=== PATIENT | male | born 1945 | race Caucasian/White ===

== ENCOUNTER → 2016-04-05 | Day surgery (SDC) | payer MEDICARE ==
--- NOTE | 2016-03-26 08:52 | HP ---
PREOPERATIVE HISTORY AND PHYSICAL: DATE OF SURGERY/ADMISSION: 03/29/16 AGE: 71. PROCEDURE: Left long finger trigger release, left ulnar decompression of the wrist, left wrist carpal tunnel release. CHIEF COMPLAINT: Numbness and tingling in the left hand, left long finger triggering. HISTORY OF PRESENT ILLNESS: This is a 71-year-old male who has developed numbness and tingling in his left hand following an elbow dislocation in October 2015. It bothers him most when he flexes his wrist and it bothers him at night. When he wakes up in the morning, his fingers are very stiff. 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 He has tried wearing a brace at night that has not been helpful in alleviating his symptoms. He recently had a nerve conduction study, which showed median and ulnar nerve compression at the left wrist. He has also had locking of his left middle finger for quite sometime now and is interested in pursuing a more permanent resolution to both of these problems in the form of surgical intervention. PAST MEDICAL HISTORY: Status post left elbow dislocation, October 2015. PAST SURGICAL HISTORY: Lipoma removed from right flank. MEDICATIONS: Omeprazole p.r.n. ALLERGIES: No known drug allergies. FAMILY MEDICAL HISTORY: Significant for diabetes. SOCIAL HISTORY: The patient is retired. He reports quitting smoking approximately 7 years ago. Prior to that, he smoked from age 18, the amount varied over that time. Towards the end of his smoking history, he was smoking a pack per week. He denies illicit drug use. Does admit to alcohol on occasion. REVIEW OF SYSTEMS: General: Negative for fevers, chills, or night sweats. No known anesthesia problems. HEENT: Negative for headache, lightheadedness, or syncopal episodes. Integumentary: Negative for abrasions, lesions, or open wounds. Cardiothoracic: Negative for chest pain, palpitations, or edema. Negative for hypertension. Pulmonary: Negative for shortness of breath with exertion, chronic cough, or COPD. GI: Positive for occasional acid reflux. Negative for nausea, vomiting, diarrhea, or constipation. : Negative for nocturia, urinary frequency, urgency, history of UTIs or kidney problems. Musculoskeletal: Positive for current complaint. Negative for chronic or intermittent back pain or history of fractures. Neurological: Negative for history, seizure, stroke or epilepsy. Endocrine: Negative for diabetes or thyroid issues. Hematologic: Negative for easy bruising, anemia, excessive bleeding, or history of DVT. Infectious Disease: Negative for history of MRSA , hepatitis C, or HIV. PHYSICAL EXAMINATION GENERAL: Well-developed, well-nourished 71-year-old male, in no acute distress. VITAL SIGNS: Height 5 feet 8 inches, weight 185 pounds. Pulse rate 72, blood pressure 128/82. HEENT: Normocephalic, atraumatic. Pupils are equal, round, and reactive to light and accommodation. NECK: Supple. No palpable lymph nodes. Throat is clear. PULMONARY: Lungs are clear to auscultation bilaterally. No wheezes, rales, or rhonchi. CARDIOTHORACIC: Regular rate and rhythm. S1, S2. No murmurs, rubs, or gallops. No edema. ABDOMEN: Positive bowel sounds, soft, and nontender. NEUROLOGICAL: Alert and oriented x3. Cranial nerves II through XII are intact. Sensation is intact to light touch. MUSCULOSKELETAL: On exam of his left upper extremity, he has a positive Tinel sign at the median nerve at the wrist. He has weakness with thumb abduction. He has full range of motion at the elbow with no exacerbation of his symptoms. He has intact sensation to light touch throughout his hand. He can make a fist. He does have active triggering of the left long finger as he moves the finger through range of motion and tenderness to palpation at the A1 kristi. DIAGNOSTIC STUDIES: EMG nerve conduction study on the left upper extremity shows moderate carpal tunnel syndrome with mild left ulnar neuropathy at the wrist. 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 PLAN: The patient is scheduled to undergo left long finger trigger release, left ulnar nerve decompression of the wrist and a left carpal tunnel release with Dr. Costa on 03/29/16. He will return to the office 10 to 14 days postop for followup and suture removal. A prescription for Ultracet was e-scribed to the patient's pharmacy for postoperative pain management. RIYA VALADEZ [id number]/[facility] #: [id number] [facility] CENTERAlexa
[~2016-04-05] MED LIST: Acetaminophen TAB* 325 MG PO PRN; Buffered Lidocaine 1% SYR 3ML* 3 ML/SYR SYRINGE INTRADERM ONE; Buffered Lidocaine 1% SYR 3ML* 3 ML/SYR SYRINGE ONE; Dexamethasone IV* 4 MG/ML 1 ML (4 MG) IV SLOW PU ONE; Dexamethasone IV* 4 MG/ML 1 ML (4 MG) ONE; Famotidine IV* 10 MG/ML 2 ML (20 mg) IV ONE; Famotidine IV* 10 MG/ML 2 ML (20 mg) ONE; HYDROcodone/ACETAMIN 5-325 MG* 1 TAB PO PRN; Ketorolac INJ* 30 MG/ML 1 ML VIAL IV PRN; Lidocaine 1% INJ* 10 MG/ML 30 ML SDV ONE; Lidocaine 2% PF * 5 ML VIAL ONE; Midazolam* 1 MG/ML 2 ML VIAL (2 MG) ONE; Ondansetron INJ* 2 MG/ML VIAL ONE; PROCHLORPERAZINE INJ 5 MG/ML 2 ML VIAL IV PRN; Propofol* 10 MG/ML 20 ML BTL IV PUSH ONE; fentaNYL* 50 MCG/ML 2 ML VIAL (100 MCG VIAL) IV PRN; fentaNYL* 50 MCG/ML 2 ML VIAL (100 MCG VIAL) ONE
[2016-04-05 10:40] VITALS: BP 105/77
--- NOTE | 2016-04-05 20:22 | OP ---
DATE OF OPERATION: 04/05/16 - [facility] DATE OF : 45 SURGEON: Flaca Costa MD PARTS ASSEMBLER: RIYA Fajardo. ANESTHESIOLOGIST: Aaliyah Early MD ANESTHESIA: Local MAC. PRE-OP DIAGNOSIS: Median and ulnar nerve compression at the left wrist and left middle finger trigger finger. POST-OP DIAGNOSIS: Median and ulnar nerve compression at the left wrist and left middle finger trigger finger. OPERATIVE PROCEDURE: Left middle finger trigger release and medial and ulnar nerve decompression of the left wrist. ESTIMATED BLOOD LOSS: Zero. TOURNIQUET TIME: About 15 minutes. INDICATIONS FOR PROCEDURE: Fernando is a 71-year-old male with numbness and tingling in the median and ulnar nerve distribution of his left hand. He also has locking and clicking of his middle finger. He presents for trigger finger release of the middle finger and median and ulnar nerve decompression of the left wrist. DESCRIPTION OF PROCEDURE: The patient was brought to the operating room, was given a sedation anesthetic and a local infiltration of total of 20 cc of 1% plain lidocaine in the palm of his left hand. The skin of his left hand and forearm was prepped and draped in the usual sterile fashion. The hand and forearm were exsanguinated and the tourniquet elevated to 250 mmHg. A transverse incision was made centered over the A1 kristi of the long finger, dissected bluntly through the subcutaneous tissue down to the A1 kristi. It was incised longitudinally. There was some mild abrasion of the flexor tendons but they were otherwise in good condition. The wound was irrigated and skin edges reapproximated with 4-0 nylon suture. Next, a longitudinal incision with Khalif incisions across the wrist flexion crease was made in line with the ring finger. We dissected through the subcutaneous tissue sharply with the knife down to the transverse carpal ligament. The ligament was divided sharply with the knife and then more proximally with the scissors. The ulnar nerve was then located proximally and carefully dissected out through Guyon's canal, completely releasing it into the mid aspect of the palm. The wound was irrigated. Hemostasis was achieved and the skin edges were reapproximated with 4-0 nylon suture. The wound was dressed with Xeroform, 4x4, Webril, and an Renato wrap. The patient tolerated the procedure well and was brought to the recovery room in good condition. [id number]/[facility] #: [id number] MTDD
== END | disposition home or self-care (01) ==
LOC: OREAST 07:58
PROVIDERS: ATTEND Orthopaedic Surgery
DX: G56.02 Carpal tunnel syndrome, left upper limb (principal); M65.332 Trigger finger, left middle finger
CPT/HCPCS: J1100; J2250; J2405; J2704; J3010

== ENCOUNTER 2017-04-18 05:10 | Emergency (ER) | payer MEDICARE ==
[2017-04-18] MEDS ORDERED: NS 0.9% 1000 ML* 1,000 ML IV ONE (06:03)
[2017-04-18 06:33] LABS: ABS Basophils 0 10^3/ul (0-0.2); ABS Eosinophils 0.2 10^3/ul (0-0.6); ABS Lymphocytes 1.3 10^3/ul (1.0-4.8); ABS Monocytes 0.6 10^3/ul (0-0.8); ABS Neutrophils 3.7 10^3/ul (1.5-7.7); ABS Nucleated RBC 0 10^3/ul; Eosinophil % 3.3 % (0-6); Hematocrit 39 % (42-52); Hemoglobin 13.5 g/dl (14.0-18.0); Lymphocyte % 21.7 % (25-47); Mean Corpuscular HGB Conc 35 g/dl (31-36); Mean Corpuscular Hemoglobin 30 pg (27-31); Mean Corpuscular Volume 86 fL (80-94); Mean Platelet Volume 8 um3 (7.4-10.4); Nucleated Red Blood Cells % 0; Platelet Count 195 10^3/ul (150-450); Red Blood Count 4.48 10^6/ul (4.0-5.4); Red Cell Distribution Width 13 % (10.5-15); White Blood Count 5.8 10^3/ul (3.5-10.8)
[2017-04-18 06:48] LABS: EGFR Non-African American 61.3 (>60)
[2017-04-18] MEDS ORDERED: Oseltamivir CAP* 75 MG CAP PO ONE (08:31)
--- NOTE | 2017-04-18 08:37 | RAD ---
INDICATION: Shortness of breath. COMPARISON: None TECHNIQUE: PA and lateral views of the chest were obtained. FINDINGS: The heart and mediastinum are normal in size and contour. At the right lung base there is faint infiltrative density. There are questionable punctate densities at the lateral right upper lung as well. There is no lobar consolidation or large suspicious mass. There is no evidence of large pleural effusion. Visualized bones are normal for the patient's age. There is no radiographic evidence of free air beneath the diaphragm IMPRESSION: QUESTIONABLE RETICULAR NODULAR DENSITIES INVOLVING THE RIGHT LUNG COULD BE SEEN IN THE SETTING OF PNEUMONIA PARTICULARLY ATYPICAL PNEUMONIA SUCH MYCOPLASMA.
[2017-04-18] MEDS ORDERED: Azithromycin TAB* 250 MG PO ONE (09:12)
[2017-04-18 09:52] VITALS: BP 138/76
[2017-04-18] MEDS ORDERED: Acetaminophen TAB* 325 MG ONE (09:56)
[2017-04-18] MEDS ORDERED: Acetaminophen TAB* 325 MG PO ONE (09:57)
--- NOTE | 2017-04-18 14:44 | ED ---
Angelo Zurita Nilda, scribed for Roman Jack MD on 04/18/17 at 0735 . Influenza-Like Illness - HPI Summary HPI Summary: This patient is a 72 year old M presenting to [facility] with a chief complaint of constant, worsening non-productive cough for the past 6 days. The patient rates the pain 3/10 in severity. Symptoms aggravated and alleviated by nothing. Patient reports CP secondary to cough and diarrhea. Patient denies fever and N/ V. - History of Current Complaint Chief Complaint: EDFluSymptoms Time Seen by Provider: 04/18/17 07:22 Hx Obtained From: Patient Onset/Duration: Sudden Onset, Lasting Days, Still Present Severity: Mild Associated Signs & Symptoms: Cough, Diarrhea - Allergy/Home Medications Allergies/Adverse Reactions: Allergies Allergy/AdvReac Type Severity Reaction Status Date / Time No Known Allergies Allergy Verified 04/05/16 08:44 PMH/Surg Hx/FS Hx/Imm Hx Endocrine/Hematology History: Denies: Hx Diabetes Cardiovascular History: Denies: Hx Coronary Artery Disease GI History: Reports: Hx Gastroesophageal Reflux Disease - occassionally Sensory History: Reports: Hx Contacts or Glasses - glasses Denies: Hx Hearing Aid Opthamlomology History: Reports: Hx Contacts or Glasses - glasses - Surgical History Surgery Procedure, Year, and Place: lipoma removed from right flank - had local Hx Anesthesia Reactions: No - Immunization History Date of Influenza Vaccine: 11/2016 Immunizations Up to Date: Yes Infectious Disease History: Yes Infectious Disease History: Denies: Traveled Outside the [place] in Last 30 Days - Family History Known Family History: Positive: Hypertension, Diabetes Negative: Cardiac Disease - Social History Alcohol Use: Occasionally Substance Use Type: Reports: None Smoking Status (MU): Former Smoker Review of Systems Negative: Fever Positive: Chest Pain - secondary to cough Positive: Cough Positive: Diarrhea. Negative: Vomiting, Nausea All Other Systems Reviewed And Are Negative: Yes Physical Exam - Summary Physical Exam Summary: VITAL SIGNS: Reviewed. GENERAL: Patient is a well-developed and nourished male who is lying comfortable in the stretcher. Patient is not in any acute respiratory distress. HEAD AND FACE: No signs of trauma. No ecchymosis, hematomas or skull depressions. No sinus tenderness. EYES: PERRLA, EOMI x 2, No injected conjunctiva, no nystagmus. EARS: Hearing grossly intact. Ear canals and tympanic membranes are within normal limits. MOUTH: Oropharynx within normal limits. NECK: Supple, trachea is midline, no adenopathy, no JVD, no carotid bruit, no c- spine tenderness, neck with full ROM. CHEST: Symmetric, no tenderness at palpation LUNGS: Clear to auscultation bilaterally. No wheezing or crackles. CVS: Regular rate and rhythm, S1 and S2 present, no murmurs or gallops appreciated. ABDOMEN: Soft, non-tender. No signs of distention. No rebound no guarding, and no masses palpated. Bowel sounds are normal. EXTREMITIES: FROM in all major joints, no edema, no cyanosis or clubbing. NEURO: Alert and oriented x 3. No acute neurological deficits. Speech is normal and follows commands. SKIN: Dry and warm Triage Information Reviewed: Yes Vital Signs On Initial Exam: Initial Vitals Temp Pulse Resp BP Pulse Ox 96.7 F 92 20 142/78 96 04/18/17 05:12 04/18/17 05:12 04/18/17 05:12 04/18/17 05:12 04/18/17 05:12 Vital Signs Reviewed: Yes Diagnostics - Vital Signs Vital Signs Temp Pulse Resp BP Pulse Ox 04/18/17 07:00 85 95 04/18/17 06:30 85 112/65 93 04/18/17 06:00 84 128/74 96 04/18/17 05:51 86 94 04/18/17 05:49 130/80 04/18/17 05:12 96.7 F 92 20 142/78 96 - Laboratory Lab Results: Lab Results 04/18/17 04/18/17 04/18/17 Range/Units 06:15 06:15 06:15 WBC 5.8 (3.5-10.8) 10^3/ul RBC 4.48 (4.0-5.4) 10^6/ul Hgb 13.5 L (14.0-18.0) g/dl Hct 39 L (42-52) % MCV 86 (80-94) fL MCH 30 (27-31) pg MCHC 35 (31-36) g/dl RDW 13 (10.5-15) % Plt Count 195 (150-450) 10^3/ul MPV 8 (7.4-10.4) um3 Neut % (Auto) 63.4 (38-83) % Lymph % (Auto) 21.7 L (25-47) % Mesa % (Auto) 10.9 H (1-9) % Eos % (Auto) 3.3 (0-6) % Baso % (Auto) 0.7 (0-2) % Absolute Neuts (auto) 3.7 (1.5-7.7) 10^3/ul Absolute Lymphs (auto) 1.3 (1.0-4.8) 10^3/ul Absolute Monos (auto) 0.6 (0-0.8) 10^3/ul Absolute Eos (auto) 0.2 (0-0.6) 10^3/ul Absolute Basos (auto) 0 (0-0.2) 10^3/ul Absolute Nucleated RBC 0 10^3/ul Nucleated RBC % 0 Sodium 139 (133-145) mmol/L Potassium 4.0 (3.5-5.0) mmol/L Chloride 107 (101-111) mmol/L Carbon Dioxide 25 (22-32) mmol/L Anion Gap 7 (2-11) mmol/L BUN 20 (6-24) mg/dL Creatinine 1.17 (0.67-1.17) mg/dL Est GFR ( Amer) 78.8 (>60) Est GFR (Non-Af Amer) 61.3 (>60) BUN/Creatinine Ratio 17.1 (8-20) Glucose 104 H (70-100) mg/dL Lactic Acid 0.9 (0.5-2.0) mmol/L Calcium 8.9 (8.6-10.3) mg/dL Total Bilirubin 0.50 (0.2-1.0) mg/dL AST 22 (13-39) U/L ALT 19 (7-52) U/L Alkaline Phosphatase 73 (34-104) U/L C-Reactive Protein 18.10 H (< 5.00) mg/L Total Protein 7.2 (6.4-8.9) g/dL Albumin 4.0 (3.2-5.2) g/dL Globulin 3.2 (2-4) g/dL Albumin/Globulin Ratio 1.3 (1-3) Influenza A (Rapid) (Negative) Influenza B (Rapid) (Negative) 04/18/17 Range/Units 06:35 WBC (3.5-10.8) 10^3/ul RBC (4.0-5.4) 10^6/ul Hgb (14.0-18.0) g/dl Hct (42-52) % MCV (80-94) fL MCH (27-31) pg MCHC (31-36) g/dl RDW (10.5-15) % Plt Count (150-450) 10^3/ul MPV (7.4-10.4) um3 Neut % (Auto) (38-83) % Lymph % (Auto) (25-47) % Mesa % (Auto) (1-9) % Eos % (Auto) (0-6) % Baso % (Auto) (0-2) % Absolute Neuts (auto) (1.5-7.7) 10^3/ul Absolute Lymphs (auto) (1.0-4.8) 10^3/ul Absolute Monos (auto) (0-0.8) 10^3/ul Absolute Eos (auto) (0-0.6) 10^3/ul Absolute Basos (auto) (0-0.2) 10^3/ul Absolute Nucleated RBC 10^3/ul Nucleated RBC % Sodium (133-145) mmol/L Potassium (3.5-5.0) mmol/L Chloride (101-111) mmol/L Carbon Dioxide (22-32) mmol/L Anion Gap (2-11) mmol/L BUN (6-24) mg/dL Creatinine (0.67-1.17) mg/dL Est GFR ( Amer) (>60) Est GFR (Non-Af Amer) (>60) BUN/Creatinine Ratio (8-20) Glucose (70-100) mg/dL Lactic Acid (0.5-2.0) mmol/L Calcium (8.6-10.3) mg/dL Total Bilirubin (0.2-1.0) mg/dL AST (13-39) U/L ALT (7-52) U/L Alkaline Phosphatase (34-104) U/L C-Reactive Protein (< 5.00) mg/L Total Protein (6.4-8.9) g/dL Albumin (3.2-5.2) g/dL Globulin (2-4) g/dL Albumin/Globulin Ratio (1-3) Influenza A (Rapid) Negative (Negative) Influenza B (Rapid) Positive H (Negative) Result Diagrams: 04/18/17 06:15 04/18/17 06:15 Lab Statement: Any lab studies that have been ordered have been reviewed, and results considered in the medical decision making process. - Radiology CXR Radiology Interpretation Completed By: Radiologist - CXR, per radiologist, reveals QUESTIONABLE RETICULAR NODULAR DENSITIES INVOLVING THE RIGHT LUNG COULD BE SEEN IN THE SETTING OF PNEUMONIA PARTICULARLY ATYPICAL PNEUMONIA SUCH MYCOPLASMA. Dr. Jack has reviewed this radiology report. Re-Evaluation - Re-Evaluation First Eval Re-Evaluation Time: 09:44 Comment: Reviewed D/C plan, labs, and imaging w pt. Flu Symptom Course/Dx - Course Assessment/Plan: This patient is a 72 year old M presenting to [facility] with a chief complaint of constant, worsening non-productive cough for the past 6 days. The patient rates the pain 3/10 in severity. Symptoms aggravated and alleviated by nothing. Patient reports CP secondary to cough and diarrhea. Patient denies fever and N/V. Influenza A negative. Influenza B positive. CXR , per radiologist, reveals QUESTIONABLE RETICULAR NODULAR DENSITIES INVOLVING THE RIGHT LUNG COULD BE SEEN IN THE SETTING OF PNEUMONIA PARTICULARLY ATYPICAL PNEUMONIA SUCH MYCOPLASMA. Dr. Jack has reviewed this radiology report. In the ED course, the patient was given Zithromax, Tamiflu, and IV fluids. The pt is hemodynamically stable, alert and oriented x3. Pt will be D/C with Dx of influenza and atypical PNA. Pt understands and is agreeable with this plan. I discussed all the findings and test results with the patient. Patient was instructed to return to the emergency room immediately if any of the symptoms return or worsens. Plan of care was discussed with the patient and understands and agrees. All questions were answered at patient satisfaction. There were no further complaints or concerns. Lung exam before discharge: CTA B/L. Good air exchange. No wheezing or crackles heard. CVS: S1 and S2 present. No murmurs appreciated. Patient is alert and oriented x 3. Patient is hemodynamically stable. Patient will be discharged home with follow up PCP in the next 2-3 days - Diagnoses Differential Diagnosis/HQI/PQRI: Positive: Bronchitis, Broncholiolitis, Influenza, Pneumonia, Upper Respiratory Infection Provider Diagnoses: Influenza, Atypical pneumonia Discharge - Discharge Plan Condition: Stable Disposition: HOME Prescriptions: Azithromycin TAB* [Zithromax TAB (Z-WICHO) 250 mg #6 tabs] 250 mg PO DAILY #4 tab Oseltamivir CAP* [Tamiflu CAP*] 75 mg PO BID #10 cap Patient Education Materials: Influenza (ED), Pneumonia (ED) Referrals: Igor Priest MD [Primary Care Provider] - 3 Days Additional Instructions: RETURN TO THE EMERGENCY DEPARTMENT FOR CHANGING OR WORSENING SYMPTOMS. The documentation as recorded by the Angelo wild Nilda accurately reflects the service I personally performed and the decisions made by Guero zepeda Walter, MD.
== END 2017-04-18 10:01 | disposition home or self-care (01) ==
LOC: ED 05:10
DX: J11.1 Influenza due to unidentified influenza virus with other respiratory manifestations (principal); J18.9 Pneumonia, unspecified organism; R07.9 Chest pain, unspecified; R05 Cough; R19.7 Diarrhea, unspecified; Z87.891 Personal history of nicotine dependence
CPT/HCPCS: 36415; 71046; 80053; 83605; 85025; 86140; 87502; 99283; A9270-GY